=== PATIENT | female | born 1960 | race African-American/Black ===

== ENCOUNTER 2018-05-16 13:26 | Inpatient (IN) | payer OTHER ==
[2018-05-16 13:59] VITALS: BMI 34.0
--- NOTE | 2018-05-16 15:19 | HP ---
CIWA Score - Admission Criteria [facility] Guidelines: Admission for Medically Managed Detox: Requires at least one of the followin. CIWA greater than 12 2. Seizures within the past 24 hours 3. Delirium tremens within the past 24 hours 4. Hallucinations within the past 24 hours 5. Acute intervention needed for co occurring medical disorder 6. Acute intervention needed for co occurring psychiatric disorder 7. Severe withdrawal that cannot be handled at a lower level of care (continued vomiting, continued diarrhea, abnormal vital signs) requiring intravenous medication and/or fluids 8. Admission ROS S - HPI Chief Complaint: I was sent here from my mmtp program for rehab for treatment. Allergies/Adverse Reactions: Allergies Allergy/AdvReac Type Severity Reaction Status Date / Time Penicillins Allergy Verified 05/16/18 15:15 History of Present Illness: pt is a 57yrold female with a history of heroin dependence and on a MMTP program seeking rehab for treatment. Pt is [place] right ear. pt is also illiterate cannot read and write. Exam Limitations: No Limitations, Other (pt is illerate to reading and writing) - Ebola screening Have you traveled outside of the country in the last 21 days: No Have you had contact with anyone from an Ebola affected area: No Have you been sick,other than usual withdrawal symptoms: No Do you have a fever: No - Review of Systems Constitutional: No Symptoms Reported EENT: reports: Blurred Vision (wears glasses), Hearing Loss ([place] to right ear) Respiratory: reports: No Symptoms reported Cardiac: reports: No Symptoms Reported GI: reports: No Symptoms Reported : reports: No Symptoms Reported Musculoskeletal: reports: No Symptoms Reported Integumentary: reports: No Symptoms Reported Neuro: reports: Seizure (last seizure many years ago; pt on keppra) Endocrine: reports: No Symptoms Reported Hematology: reports: No Symptoms Reported Psychiatric: reports: Judgement Intact, Mood/Affect Appropiate, Orientated x3, Agitated, Anxious Other Systems: Reviewed and Negative Patient History - Patient Medical History Hx Anemia: No Hx Asthma: No Hx Chronic Obstructive Pulmonary Disease (COPD): No Hx Cancer: No Hx Cardiac Disorders: No Hx Congestive Heart Failure: No Hx Hypertension: Yes Hx Hypercholesterolemia: Yes Hx Pacemaker: No HX Cerebrovascular Accident: No Hx Seizures: Yes (on keppra) Hx Dementia: No Hx Diabetes: Yes (type 2 on medication) Hx Gastrointestinal Disorders: No Hx Liver Disease: No Hx Genitourinary Disorders: No Hx Sexually Transmitted Disorders: No Hx Renal Disease (ESRD): No Hx Thyroid Disease: No Hx Human Immunodeficiency Virus (HIV): No (negative) Hx Hepatitis C: No (negative) Hx Depression: Yes Hx Suicide Attempt: No (pt denies) Hx Bipolar Disorder: Yes Hx Schizophrenia: Yes - Patient Surgical History Past Surgical History: Yes Hx Section: Yes (x1) - PPD History Previous Implant?: Yes Documented Results: Negative w/o proof PPD to be Administered?: Yes - Reproductive History Patient is a Female of Child Bearing Age (11 -55 yrs old): No - Smoking Cessation Smoking history: Never smoked Have you smoked in the past 12 months: No Hx Chewing Tobacco Use: No Initiated information on smoking cessation: No - Substance & Tx. History Hx Alcohol Use: No Hx Substance Use: Yes Substance Use Type: Heroin Hx Substance Use Treatment: No - Substances Abused Heroin Route: Inhalation Frequency: 1-2 times per week Amount used: 1 bag Age of first use: 19 Date of Last Use: 05/16/18 Family Disease History - Family Disease History Family History: Unremarkable Admission Physical Exam [facility] - Vital Signs Vital Signs: Vital Signs - 24 hr 05/16/18 13:57 Temperature 99.9 F H Pulse Rate 67 Respiratory 17 Rate Blood Pressure 119/70 - Physical General Appearance: Yes: Appropriately Dressed, Mild Distress, Irritable, Anxious HEENTM: Yes: Hearing grossly Normal, Normal Voice, Rhinorrhea Respiratory: Yes: Lungs Clear, Normal Breath Sounds, No Respiratory Distress Neck: Yes: No masses,lesions,Nodules Breast: Yes: Within Normal Limits Cardiology: Yes: Regular Rhythm, Regular Rate, S1, S2 Abdominal: Yes: Normal Bowel Sounds, Non Tender, Soft Genitourinary: Yes: Within Normal Limits Back: Yes: Normal Inspection Musculoskeletal: Yes: full range of Motion Extremities: Yes: Normal Capillary Refill, Normal Inspection, Non-Tender Neurological: Yes: Fully Oriented, Alert, Normal Response, Other (pt states she is illiterate with reading and writing) Lymphatic: Yes: Within Normal Limits - Diagnostic (1) Heroin abuse Current Visit: Yes Status: Acute (2) Methadone maintenance therapy patient Current Visit: Yes Status: Chronic Comment: pending verification. last medicated today 05/16/18 Cleared for Admission S - Detox or Rehab [facility] Level of Care: Medically Managed Claeared for Rehab Admission: Yes [facility] Breath Alcohol Content Breath Alcohol Content: 0 Urine Pregancy Test - Result Urine Test Results: Negative- NO Line Present Urine Drug Screen - Results Drug Screen Negative: No Urine Drug Screen Results: OPI-Opiates, MTD-Methadone Inpatient Rehab Admission - Rehab Decision to Admit Inpatient rehab admission?: Yes - Initial Determination Are CD services needed?: Yes Free of communicable disease: Yes Not in need of hospitalization: Yes - Rehab Admission Criteria Previous failed treatment: Yes Poor recovery environment: Yes Comorbidities: Yes Lacks judgement: Yes Patient is meeting Inpatient Rehab admission criteria:: Yes
[2018-05-16] MEDS ORDERED: MENTHOL/PHENOL 1 EACH UD MM PRN (15:33)
[2018-05-16] MEDS ORDERED: MAG HYDROX/AL HYDROX/SIMETH 30 ML UNIT-DOSE CUP PO PRN (15:33)
[2018-05-16] MEDS ORDERED: LOPERAMIDE HCL 2 MG CAPSULE PO PRN (15:33)
[2018-05-16] MEDS ORDERED: P-EPHED 60MG/TRIPROLIDI 2.5MG TABLET PO PRN (15:33)
[2018-05-16] MEDS ORDERED: MAGNESIUM CITRATE 300 ML BOTTLE PO PRN (15:33)
[2018-05-16] MEDS ORDERED: IBUPROFEN 400 MG TABLET (FP) PO PRN (15:33)
[2018-05-16] MEDS ORDERED: MAGNESIUM HYDROX 2400MG/30ML ORAL SUSPENSION 30 ML CUP PO PRN (15:33)
[2018-05-16] MEDS ORDERED: hydrOXYzine PAMOATE 50 MG CAPSULE (FP) PO PRN (15:33)
[2018-05-16] MEDS ORDERED: ACETAMINOPHEN 325 MG TABLET (FP) PO PRN (15:33)
[2018-05-16] MEDS ORDERED: guaiFENesin/D-METHORPHAN HB 10 ML UNIT-DOSE CUPS PO PRN (15:33)
--- NOTE | 2018-05-16 19:31 | PN ---
[facility] Progress Note Note: Psychiatrist entry level sales consultant: As per nursing report patient started on preadmission medications: Risperdal 2mg po bid [id number] po tid [id number] po qhs
[2018-05-16] MEDS ORDERED: MELATONIN 5 MG TABLETS PO PRN (22:00)
[2018-05-16] MEDS: NAPROXEN 375 MG TABLET (FP) PO SCH (22:08)
[2018-05-16] MEDS: ATORVASTATIN CA 20 MG TABLET (FP) PO SCH (22:09)
[2018-05-16] MEDS: MIRTAZAPINE 15 MG TABLET (FP) PO SCH (22:09)
[2018-05-16] MEDS: risperiDONE 2 MG TABLET PO SCH (22:09)
[2018-05-16] MEDS: GABAPENTIN 400 MG CAPSULE (FP) PO SCH (22:09)
[2018-05-16] MEDS: THIAMINE HCL 100 MG TABLET (FP) PO SCH (22:10)
[2018-05-16] MEDS: levETIRAcetam XR 500 MG TAB PO SCH (22:10)
[2018-05-17] MEDS: GABAPENTIN 400 MG CAPSULE (FP) PO SCH ×3 (06:55→21:52)
[2018-05-17] MEDS: glyBURIDE 2.5 MG TABLET (FP) PO SCH (06:56)
[2018-05-17] MEDS ORDERED: METHADONE HCL 10 MG TABLET PO SCH (07:30)
[2018-05-17] MEDS ORDERED: METHADONE HCL 40 MG DISPERSABLE TABLET ONE (08:26)
[2018-05-17] MEDS ORDERED: METHADONE HCL 10 MG TABLET ONE (08:26)
[2018-05-17] MEDS: METHADONE 120 MG, METHADONE 10 MG PO SCH (08:28)
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
[2018-05-17] MEDS ORDERED: PATIENT'S OWN MEDICATION (NON-FORMULARY) (Lisinopril/Hydrochlorothiazide [Lisinopril-Hctz PO SCH (10:00)
[2018-05-17] MEDS ORDERED: PATIENT'S OWN MEDICATION (NON-FORMULARY) (Meloxicam [Meloxicam] 15 MG) PO SCH (10:00)
[2018-05-17] MEDS: risperiDONE 2 MG TABLET PO SCH ×2 (10:34→21:52)
[2018-05-17] MEDS: PRENATAL VITAMINS W/ FOLIC ACID TABLET (FP) PO SCH (10:34)
[2018-05-17] MEDS: HYDROCHLOROTHIAZIDE 12.5 MG CAPSULE (FP) PO SCH (10:35)
[2018-05-17] MEDS: NAPROXEN 375 MG TABLET (FP) PO SCH ×2 (10:35→21:52)
[2018-05-17] MEDS: LISINOPRIL 10 MG TABLET (FP) PO SCH (10:35)
[2018-05-17] MEDS: ASPIRIN COATED 81 MG TABLET.EC PO SCH (10:35)
[2018-05-17] MEDS: levETIRAcetam XR 500 MG TAB PO SCH ×2 (10:35→21:51)
[2018-05-17 10:51] LABS: HEMATOCRIT 35.4 % (32.4-45.2); HEMOGLOBIN 11.9 GM/dL (10.7-15.3); MCH 29.1 pg (25.7-33.7); MCHC 33.6 g/dl (32.0-36.0); MEAN CELL VOLUME 86.6 fl (80-96); MEAN PLT VOLUME 9.1 fl (7.5-11.1); PLATELET COUNT 238 K/MM3 (134-434); RBC 4.09 M/mm3 (3.60-5.2); RDW 15.5 % (11.6-15.6); WHITE BLOOD COUNT 5.3 K/mm3 (4.0-10.0)
[2018-05-17 10:54] LABS: ALBUMIN 3.5 g/dl (3.4-5.0); ALK PHOS 110 U/L (45-117); ANION GAP 5 MMOL/L (8-16); BILIRUBIN,TOTAL 0.5 mg/dL (0.2-1); BLOOD UREA NITROGEN 14 mg/dL (7-18); CALCIUM 9.2 mg/dL (8.5-10.1); CHLORIDE 103 mmol/L (98-107); CO2 31 mmol/L (21-32); CREATININE 0.9 mg/dL (0.55-1.3); GLUCOSE,RANDOM 138 mg/dL (74-106); POTASSIUM 4.1 mmol/L (3.5-5.1); SGOT/AST 16 U/L (15-37); SGPT/ALT 22 U/L (13-61); SODIUM 139 mmol/L (136-145); TOT PROT 7.2 g/dl (6.4-8.2)
[2018-05-17 12:50] LABS: URINE APPEARANCE SLCLOUDY; URINE BILIRUBIN NEGATIVE (<2.0 mg/dL); URINE COLOR DKYELLOW; URINE GLUCOSE (UA) 1+ (NEGATIVE); URINE KETONE NEGATIVE (NEGATIVE); URINE LEUK ESTERASE 3+ (NEGATIVE); URINE NITRITE NEGATIVE (NEGATIVE); URINE PROTEIN NEGATIVE (NEGATIVE); URINE UROBILINOGEN NEGATIVE mg/dL (0.2-1.0)
[2018-05-17 13:07] LABS: CALCIUM OXALATE CRYSTALS RARE /hpf (NONE SEEN); EPI CELLS RARE /HPF (FEW)
--- NOTE | 2018-05-17 15:06 | EKG ---
Test Reason : Blood Pressure : / mmHG Vent. Rate : 049 BPM Atrial Rate : 049 BPM P-R Int : 162 ms QRS Dur : 084 ms QT Int : 462 ms P-R-T Axes : 061 -05 -17 degrees QTc Int : 417 ms SINUS BRADYCARDIA T WAVE ABNORMALITY, CONSIDER ANTERIOR ISCHEMIA ABNORMAL ECG NO PREVIOUS ECGS AVAILABLE Confirmed by SHANNAN FELDMAN MD ([id number]) on 05/17/2018 3:06:20 PM Referred By: Confirmed By:SHANNAN FELDMAN MD
[2018-05-17] MEDS ORDERED: PT OWN MED DRAWER 7, Y5N ONE (19:27)
[2018-05-17] MEDS: ATORVASTATIN CA 20 MG TABLET (FP) PO SCH (21:51)
[2018-05-17] MEDS: MIRTAZAPINE 15 MG TABLET (FP) PO SCH (21:52)
[2018-05-17] MEDS: THIAMINE HCL 100 MG TABLET (FP) PO SCH (21:52)
[2018-05-18] MEDS ORDERED: METHADONE HCL 10 MG TABLET ONE (05:14)
[2018-05-18] MEDS ORDERED: METHADONE HCL 40 MG DISPERSABLE TABLET ONE (05:15)
[2018-05-18] MEDS ORDERED: METHADONE 120 MG, METHADONE 10 MG PO SCH (06:00)
[2018-05-18] MEDS: METHADONE 120 MG, METHADONE 10 MG PO SCH (06:17)
[2018-05-18] MEDS: GABAPENTIN 400 MG CAPSULE (FP) PO SCH ×3 (06:18→21:43)
[2018-05-18] MEDS: glyBURIDE 2.5 MG TABLET (FP) PO SCH (06:19)
[2018-05-18] MEDS ORDERED: PT OWN MED DRAWER 7, Y5N ONE ×3 (08:50→21:48)
[2018-05-18] MEDS: NAPROXEN 375 MG TABLET (FP) PO SCH ×2 (10:30→21:44)
[2018-05-18] MEDS: LISINOPRIL 10 MG TABLET (FP) PO SCH (10:32)
[2018-05-18] MEDS: PRENATAL VITAMINS W/ FOLIC ACID TABLET (FP) PO SCH (10:32)
[2018-05-18] MEDS: ASPIRIN COATED 81 MG TABLET.EC PO SCH (10:32)
[2018-05-18] MEDS: HYDROCHLOROTHIAZIDE 12.5 MG CAPSULE (FP) PO SCH (10:32)
[2018-05-18] MEDS: risperiDONE 2 MG TABLET PO SCH ×2 (10:32→21:43)
[2018-05-18] MEDS: levETIRAcetam XR 500 MG TAB PO SCH ×2 (10:33→21:45)
[2018-05-18] MEDS: PANTOPRAZOLE 40 MG TABLET (FP) PO SCH (13:55)
[2018-05-18] MEDS: ATORVASTATIN CA 20 MG TABLET (FP) PO SCH (21:43)
[2018-05-18] MEDS: MIRTAZAPINE 15 MG TABLET (FP) PO SCH (21:43)
[2018-05-18] MEDS: THIAMINE HCL 100 MG TABLET (FP) PO SCH (22:25)
[2018-05-19] MEDS ORDERED: METHADONE HCL 40 MG DISPERSABLE TABLET ONE (02:31)
[2018-05-19] MEDS ORDERED: METHADONE HCL 10 MG TABLET ONE (02:31)
[2018-05-19] MEDS ORDERED: PT OWN MED DRAWER 7, Y5N ONE ×2 (02:33→08:50)
[2018-05-19] MEDS: GABAPENTIN 400 MG CAPSULE (FP) PO SCH ×3 (06:35→21:42)
[2018-05-19] MEDS: glyBURIDE 2.5 MG TABLET (FP) PO SCH (06:35)
[2018-05-19] MEDS: METHADONE 120 MG, METHADONE 10 MG PO SCH (06:37)
[2018-05-19] MEDS: ASPIRIN COATED 81 MG TABLET.EC PO SCH (10:11)
[2018-05-19] MEDS: HYDROCHLOROTHIAZIDE 12.5 MG CAPSULE (FP) PO SCH (10:12)
[2018-05-19] MEDS: PRENATAL VITAMINS W/ FOLIC ACID TABLET (FP) PO SCH (10:12)
[2018-05-19] MEDS: levETIRAcetam XR 500 MG TAB PO SCH ×2 (10:12→21:42)
[2018-05-19] MEDS: NAPROXEN 375 MG TABLET (FP) PO SCH ×2 (10:12→21:43)
[2018-05-19] MEDS: risperiDONE 2 MG TABLET PO SCH ×2 (10:13→21:42)
[2018-05-19] MEDS: LISINOPRIL 10 MG TABLET (FP) PO SCH (10:13)
[2018-05-19] MEDS: PANTOPRAZOLE 40 MG TABLET (FP) PO SCH (10:13)
[2018-05-19] MEDS: THIAMINE HCL 100 MG TABLET (FP) PO SCH (21:42)
[2018-05-19] MEDS: ATORVASTATIN CA 20 MG TABLET (FP) PO SCH (21:42)
[2018-05-19] MEDS: MIRTAZAPINE 15 MG TABLET (FP) PO SCH (21:42)
[2018-05-20] MEDS ORDERED: METHADONE HCL 40 MG DISPERSABLE TABLET ONE (03:28)
[2018-05-20] MEDS ORDERED: METHADONE HCL 10 MG TABLET ONE (03:28)
[2018-05-20] MEDS: METHADONE 120 MG, METHADONE 10 MG PO SCH (06:41)
[2018-05-20] MEDS: glyBURIDE 2.5 MG TABLET (FP) PO SCH (06:42)
[2018-05-20] MEDS: GABAPENTIN 400 MG CAPSULE (FP) PO SCH ×3 (06:42→22:45)
[2018-05-20] MEDS ORDERED: PT OWN MED DRAWER 7, Y5N ONE ×4 (08:50→20:15)
[2018-05-20] MEDS: ASPIRIN COATED 81 MG TABLET.EC PO SCH (10:06)
[2018-05-20] MEDS: risperiDONE 2 MG TABLET PO SCH ×2 (10:34→22:45)
[2018-05-20] MEDS: PRENATAL VITAMINS W/ FOLIC ACID TABLET (FP) PO SCH (10:34)
[2018-05-20] MEDS: HYDROCHLOROTHIAZIDE 12.5 MG CAPSULE (FP) PO SCH (10:34)
[2018-05-20] MEDS: PANTOPRAZOLE 40 MG TABLET (FP) PO SCH (10:34)
[2018-05-20] MEDS: levETIRAcetam XR 500 MG TAB PO SCH ×2 (10:34→22:45)
[2018-05-20] MEDS: LISINOPRIL 10 MG TABLET (FP) PO SCH (10:34)
[2018-05-20] MEDS: NAPROXEN 375 MG TABLET (FP) PO SCH ×2 (10:36→22:45)
[2018-05-20] MEDS: MIRTAZAPINE 15 MG TABLET (FP) PO SCH (22:45)
[2018-05-20] MEDS: THIAMINE HCL 100 MG TABLET (FP) PO SCH (22:45)
[2018-05-20] MEDS: ATORVASTATIN CA 20 MG TABLET (FP) PO SCH (22:45)
[2018-05-21] MEDS ORDERED: METHADONE HCL 10 MG TABLET ONE (06:02)
[2018-05-21] MEDS ORDERED: METHADONE HCL 40 MG DISPERSABLE TABLET ONE (06:03)
[2018-05-21] MEDS ORDERED: PT OWN MED DRAWER 7, Y5N ONE (06:04)
[2018-05-21] MEDS: GABAPENTIN 400 MG CAPSULE (FP) PO SCH ×3 (06:27→21:14)
[2018-05-21] MEDS: METHADONE 120 MG, METHADONE 10 MG PO SCH (06:27)
[2018-05-21] MEDS: glyBURIDE 2.5 MG TABLET (FP) PO SCH (06:28)
[2018-05-21] MEDS: HYDROCHLOROTHIAZIDE 12.5 MG CAPSULE (FP) PO SCH (10:23)
[2018-05-21] MEDS: LISINOPRIL 10 MG TABLET (FP) PO SCH (10:24)
[2018-05-21] MEDS: NAPROXEN 375 MG TABLET (FP) PO SCH ×2 (10:24→21:13)
[2018-05-21] MEDS: ASPIRIN COATED 81 MG TABLET.EC PO SCH (10:24)
[2018-05-21] MEDS: PRENATAL VITAMINS W/ FOLIC ACID TABLET (FP) PO SCH (10:24)
[2018-05-21] MEDS: PANTOPRAZOLE 40 MG TABLET (FP) PO SCH (10:24)
[2018-05-21] MEDS: risperiDONE 2 MG TABLET PO SCH ×2 (10:24→21:14)
[2018-05-21] MEDS: levETIRAcetam XR 500 MG TAB PO SCH ×2 (10:25→21:14)
--- NOTE | 2018-05-21 15:55 | PN ---
[facility] Progress Note Note: PT C/O RIGHT TOE PAIN AND DENIED ANY TRUAMA TO TOE OR LEG. REPORTS HX OF ARTHRITIS TO FEET. Vital Signs - 24 hr 05/21/18 05/21/18 05/21/18 00:30 03:30 07:46 Temperature 98.0 F Pulse Rate 49 L Respiratory 18 18 18 Rate Blood Pressure 107/71 05/21/18 09:19 Temperature Pulse Rate 73 Respiratory Rate Blood Pressure 111/75 Laboratory Tests 05/16/18 05/16/18 05/16/18 06:25 06:25 06:25 WBC 5.3 RBC 4.09 Hgb 11.9 Hct 35.4 MCV 86.6 MCH 29.1 MCHC 33.6 RDW 15.5 Plt Count 238 MPV 9.1 Sodium 139 Potassium 4.1 Chloride 103 Carbon Dioxide 31 Anion Gap 5 L BUN 14 Creatinine 0.9 Creat Clearance w eGFR > 60 POC Glucometer Random Glucose 138 H Calcium 9.2 Total Bilirubin 0.5 AST 16 ALT 22 Alkaline Phosphatase 110 Total Protein 7.2 Albumin 3.5 Urine Color Urine Appearance Urine pH Ur Specific [place] Urine Protein Urine Glucose (UA) Urine Ketones Urine Blood Urine Nitrite Urine Bilirubin Urine Urobilinogen Ur Leukocyte Esterase Urine WBC (Auto) Urine RBC (Auto) Ur Epithelial Cells Calcium Oxalate Crystal RPR Titer Nonreactive 05/16/18 05/17/18 05/17/18 16:53 06:53 10:40 WBC RBC Hgb Hct MCV MCH MCHC RDW Plt Count MPV Sodium Potassium Chloride Carbon Dioxide Anion Gap BUN Creatinine Creat Clearance w eGFR POC Glucometer 137 102 Random Glucose Calcium Total Bilirubin AST ALT Alkaline Phosphatase Total Protein Albumin Urine Color Dkyellow Urine Appearance Slcloudy Urine pH 5.0 Ur Specific [place] 1.029 Urine Protein Negative Urine Glucose (UA) 1+ H Urine Ketones Negative Urine Blood Negative Urine Nitrite Negative Urine Bilirubin Negative Urine Urobilinogen Negative Ur Leukocyte Esterase 3+ H Urine WBC (Auto) 12 Urine RBC (Auto) None Ur Epithelial Cells Rare Calcium Oxalate Crystal Rare RPR Titer 05/18/18 05/18/18 05/19/18 06:17 17:00 06:37 WBC RBC Hgb Hct MCV MCH MCHC RDW Plt Count MPV Sodium Potassium Chloride Carbon Dioxide Anion Gap BUN Creatinine Creat Clearance w eGFR POC Glucometer 140 171 102 Random Glucose Calcium Total Bilirubin AST ALT Alkaline Phosphatase Total Protein Albumin Urine Color Urine Appearance Urine pH Ur Specific [place] Urine Protein Urine Glucose (UA) Urine Ketones Urine Blood Urine Nitrite Urine Bilirubin Urine Urobilinogen Ur Leukocyte Esterase Urine WBC (Auto) Urine RBC (Auto) Ur Epithelial Cells Calcium Oxalate Crystal RPR Titer 05/19/18 05/20/18 05/20/18 16:47 06:40 16:41 WBC RBC Hgb Hct MCV MCH MCHC RDW Plt Count MPV Sodium Potassium Chloride Carbon Dioxide Anion Gap BUN Creatinine Creat Clearance w eGFR POC Glucometer 188 146 197 Random Glucose Calcium Total Bilirubin AST ALT Alkaline Phosphatase Total Protein Albumin Urine Color Urine Appearance Urine pH Ur Specific [place] Urine Protein Urine Glucose (UA) Urine Ketones Urine Blood Urine Nitrite Urine Bilirubin Urine Urobilinogen Ur Leukocyte Esterase Urine WBC (Auto) Urine RBC (Auto) Ur Epithelial Cells Calcium Oxalate Crystal RPR Titer 05/21/18 06:26 WBC RBC Hgb Hct MCV MCH MCHC RDW Plt Count MPV Sodium Potassium Chloride Carbon Dioxide Anion Gap BUN Creatinine Creat Clearance w eGFR POC Glucometer 146 Random Glucose Calcium Total Bilirubin AST ALT Alkaline Phosphatase Total Protein Albumin Urine Color Urine Appearance Urine pH Ur Specific [place] Urine Protein Urine Glucose (UA) Urine Ketones Urine Blood Urine Nitrite Urine Bilirubin Urine Urobilinogen Ur Leukocyte Esterase Urine WBC (Auto) Urine RBC (Auto) Ur Epithelial Cells Calcium Oxalate Crystal RPR Titer EXTREMITY EXAM:BUNION ON BOTH GREAT TOES, LEFT > RIGHT. RIGHT TOE NAILS WITH SEVERE ONYCCHOMYCOTIC CHANGES SKIN:EXTREME DRYNESS WITH SCALING/ASHINESS. A:ONYCCHOMYCOSIS OF NAILS TINEA PEDIS DRY SKIN BUNION PLAN:WARM FOOT SOAKS AMMONIUM LACTATE LOTION DIRECTED ANALGESIC BALM TO RIGHT TOE DIRECTED TINACTIN CREAM
[2018-05-21] MEDS: THIAMINE HCL 100 MG TABLET (FP) PO SCH (21:13)
[2018-05-21] MEDS: AMMONIUM LACTATE 12% LOTION 225 GM BOTTLE TP SCH (21:14)
[2018-05-21] MEDS: MIRTAZAPINE 15 MG TABLET (FP) PO SCH (21:14)
[2018-05-21] MEDS: ATORVASTATIN CA 20 MG TABLET (FP) PO SCH (21:14)
[2018-05-21] MEDS: METHYL SALICYLATE/MENTHOL OINT 30 GM TUBE TP SCH (21:15)
[2018-05-21] MEDS: TOLNAFTATE 1% CREAM 15 GM TUBE TP SCH (21:16)
[2018-05-22] MEDS ORDERED: METHADONE HCL 10 MG TABLET ONE (06:08)
[2018-05-22] MEDS ORDERED: METHADONE HCL 40 MG DISPERSABLE TABLET ONE (06:09)
[2018-05-22] MEDS: GABAPENTIN 400 MG CAPSULE (FP) PO SCH ×3 (07:00→22:31)
[2018-05-22] MEDS: METHADONE 120 MG, METHADONE 10 MG PO SCH (07:00)
[2018-05-22] MEDS: glyBURIDE 2.5 MG TABLET (FP) PO SCH (07:04)
[2018-05-22] MEDS: METHYL SALICYLATE/MENTHOL OINT 30 GM TUBE TP SCH ×2 (09:28→22:34)
[2018-05-22] MEDS: NAPROXEN 375 MG TABLET (FP) PO SCH ×2 (09:28→22:32)
[2018-05-22] MEDS: HYDROCHLOROTHIAZIDE 12.5 MG CAPSULE (FP) PO SCH (09:29)
[2018-05-22] MEDS: AMMONIUM LACTATE 12% LOTION 225 GM BOTTLE TP SCH ×2 (09:29→22:34)
[2018-05-22] MEDS: PRENATAL VITAMINS W/ FOLIC ACID TABLET (FP) PO SCH (09:29)
[2018-05-22] MEDS: levETIRAcetam XR 500 MG TAB PO SCH ×2 (09:29→22:41)
[2018-05-22] MEDS: ASPIRIN COATED 81 MG TABLET.EC PO SCH (09:29)
[2018-05-22] MEDS: LISINOPRIL 10 MG TABLET (FP) PO SCH (09:30)
[2018-05-22] MEDS: risperiDONE 2 MG TABLET PO SCH ×2 (09:30→22:31)
[2018-05-22] MEDS: PANTOPRAZOLE 40 MG TABLET (FP) PO SCH (09:30)
[2018-05-22] MEDS: TOLNAFTATE 1% CREAM 15 GM TUBE TP SCH ×2 (10:47→22:33)
[2018-05-22] MEDS: THIAMINE HCL 100 MG TABLET (FP) PO SCH (22:31)
[2018-05-22] MEDS: ATORVASTATIN CA 20 MG TABLET (FP) PO SCH (22:32)
[2018-05-22] MEDS: MIRTAZAPINE 15 MG TABLET (FP) PO SCH (22:33)
[2018-05-23] MEDS ORDERED: METHADONE HCL 40 MG DISPERSABLE TABLET ONE (05:41)
[2018-05-23] MEDS ORDERED: METHADONE HCL 10 MG TABLET ONE (05:41)
[2018-05-23] MEDS: GABAPENTIN 400 MG CAPSULE (FP) PO SCH ×3 (06:15→21:36)
[2018-05-23] MEDS: METHADONE 120 MG, METHADONE 10 MG PO SCH (06:15)
[2018-05-23] MEDS: glyBURIDE 2.5 MG TABLET (FP) PO SCH (07:10)
[2018-05-23] MEDS ORDERED: PT OWN MED DRAWER 7, Y5N ONE ×2 (08:49→20:44)
[2018-05-23] MEDS: ASPIRIN COATED 81 MG TABLET.EC PO SCH (10:42)
[2018-05-23] MEDS: NAPROXEN 375 MG TABLET (FP) PO SCH ×2 (10:42→21:37)
[2018-05-23] MEDS: HYDROCHLOROTHIAZIDE 12.5 MG CAPSULE (FP) PO SCH (10:42)
[2018-05-23] MEDS: PRENATAL VITAMINS W/ FOLIC ACID TABLET (FP) PO SCH (10:42)
[2018-05-23] MEDS: PANTOPRAZOLE 40 MG TABLET (FP) PO SCH (10:42)
[2018-05-23] MEDS: LISINOPRIL 10 MG TABLET (FP) PO SCH (10:43)
[2018-05-23] MEDS: risperiDONE 2 MG TABLET PO SCH ×2 (10:43→21:36)
[2018-05-23] MEDS: AMMONIUM LACTATE 12% LOTION 225 GM BOTTLE TP SCH ×2 (10:44→21:38)
[2018-05-23] MEDS: levETIRAcetam XR 500 MG TAB PO SCH ×2 (10:44→21:38)
[2018-05-23] MEDS: METHYL SALICYLATE/MENTHOL OINT 30 GM TUBE TP SCH ×2 (10:45→21:38)
[2018-05-23] MEDS: TOLNAFTATE 1% CREAM 15 GM TUBE TP SCH ×2 (10:45→21:38)
[2018-05-23] MEDS: MIRTAZAPINE 15 MG TABLET (FP) PO SCH (21:36)
[2018-05-23] MEDS: THIAMINE HCL 100 MG TABLET (FP) PO SCH (21:36)
[2018-05-23] MEDS: ATORVASTATIN CA 20 MG TABLET (FP) PO SCH (21:36)
[2018-05-24] MEDS ORDERED: METHADONE HCL 10 MG TABLET ONE (05:55)
[2018-05-24] MEDS ORDERED: METHADONE HCL 40 MG DISPERSABLE TABLET ONE (05:55)
[2018-05-24] MEDS: METHADONE 120 MG, METHADONE 10 MG PO SCH (06:11)
[2018-05-24] MEDS: GABAPENTIN 400 MG CAPSULE (FP) PO SCH ×3 (06:11→21:54)
[2018-05-24] MEDS: glyBURIDE 2.5 MG TABLET (FP) PO SCH (06:16)
[2018-05-24] MEDS: levETIRAcetam XR 500 MG TAB PO SCH ×2 (10:30→22:08)
[2018-05-24] MEDS: PANTOPRAZOLE 40 MG TABLET (FP) PO SCH (10:31)
[2018-05-24] MEDS: ASPIRIN COATED 81 MG TABLET.EC PO SCH (10:31)
[2018-05-24] MEDS: NAPROXEN 375 MG TABLET (FP) PO SCH ×2 (10:31→21:54)
[2018-05-24] MEDS: PRENATAL VITAMINS W/ FOLIC ACID TABLET (FP) PO SCH (10:31)
[2018-05-24] MEDS: risperiDONE 2 MG TABLET PO SCH ×2 (10:31→21:54)
[2018-05-24] MEDS: METHYL SALICYLATE/MENTHOL OINT 30 GM TUBE TP SCH ×2 (10:32→21:54)
[2018-05-24] MEDS: HYDROCHLOROTHIAZIDE 12.5 MG CAPSULE (FP) PO SCH (10:32)
[2018-05-24] MEDS: TOLNAFTATE 1% CREAM 15 GM TUBE TP SCH ×2 (10:32→22:19)
[2018-05-24] MEDS: LISINOPRIL 10 MG TABLET (FP) PO SCH (10:32)
[2018-05-24] MEDS: AMMONIUM LACTATE 12% LOTION 225 GM BOTTLE TP SCH ×2 (10:32→21:54)
[2018-05-24] MEDS ORDERED: PT OWN MED DRAWER 7, Y5N ONE ×4 (11:06→22:03)
--- NOTE | 2018-05-24 12:14 | PN ---
[facility] Progress Note Note: NURSE REQUESTS TO REVIEW BP READINGS; Vital Signs (72 hours) 05/22/18 05/22/18 05/22/18 00:30 03:30 07:35 Temperature 98.4 F Pulse Rate 47 L Respiratory 18 18 18 Rate Blood Pressure 120/77 05/22/18 05/23/18 05/23/18 09:29 00:30 03:30 Temperature Pulse Rate 79 Respiratory 16 16 Rate Blood Pressure 93/64 05/23/18 05/23/18 05/24/18 07:17 09:30 00:30 Temperature 98.3 F Pulse Rate 55 L 68 Respiratory 18 18 Rate Blood Pressure 122/81 111/72 05/24/18 05/24/18 05/24/18 03:30 07:10 09:25 Temperature 98.1 F Pulse Rate 78 55 L Respiratory 18 18 Rate Blood Pressure 132/79 96/60 NOTED PLAN:CONTINUE POC HOLD HYDROCHLOROTHIAZIDE 12.5 MG PO DAILY IG LOW BP OF 100/60.
[2018-05-24] MEDS: THIAMINE HCL 100 MG TABLET (FP) PO SCH (21:53)
[2018-05-24] MEDS: ATORVASTATIN CA 20 MG TABLET (FP) PO SCH (21:53)
[2018-05-24] MEDS: MIRTAZAPINE 15 MG TABLET (FP) PO SCH (21:54)
[2018-05-25] MEDS ORDERED: PT OWN MED DRAWER 7, Y5N ONE (05:59)
[2018-05-25] MEDS: glyBURIDE 2.5 MG TABLET (FP) PO SCH (07:00)
[2018-05-25] MEDS: GABAPENTIN 400 MG CAPSULE (FP) PO SCH ×3 (07:00→21:50)
[2018-05-25] MEDS ORDERED: METHADONE HCL 10 MG TABLET PO SCH (07:45)
[2018-05-25] MEDS ORDERED: METHADONE HCL 10 MG TABLET ONE (08:34)
[2018-05-25] MEDS ORDERED: METHADONE HCL 40 MG DISPERSABLE TABLET ONE (08:35)
[2018-05-25] MEDS: METHADONE 120 MG, METHADONE 10 MG PO SCH (08:36)
[2018-05-25] MEDS: risperiDONE 2 MG TABLET PO SCH ×2 (10:28→21:50)
[2018-05-25] MEDS: PANTOPRAZOLE 40 MG TABLET (FP) PO SCH (10:28)
[2018-05-25] MEDS: PRENATAL VITAMINS W/ FOLIC ACID TABLET (FP) PO SCH (10:28)
[2018-05-25] MEDS: ASPIRIN COATED 81 MG TABLET.EC PO SCH (10:28)
[2018-05-25] MEDS: levETIRAcetam XR 500 MG TAB PO SCH ×2 (10:28→21:49)
[2018-05-25] MEDS: NAPROXEN 375 MG TABLET (FP) PO SCH ×2 (10:28→21:49)
[2018-05-25] MEDS: TOLNAFTATE 1% CREAM 15 GM TUBE TP SCH ×2 (10:29→21:49)
[2018-05-25] MEDS: HYDROCHLOROTHIAZIDE 12.5 MG CAPSULE (FP) PO SCH (10:29)
[2018-05-25] MEDS: LISINOPRIL 10 MG TABLET (FP) PO SCH (10:29)
[2018-05-25] MEDS: METHYL SALICYLATE/MENTHOL OINT 30 GM TUBE TP SCH ×2 (10:29→21:50)
[2018-05-25] MEDS: AMMONIUM LACTATE 12% LOTION 225 GM BOTTLE TP SCH ×2 (10:30→21:49)
[2018-05-25] MEDS: THIAMINE HCL 100 MG TABLET (FP) PO SCH (21:48)
[2018-05-25] MEDS: ATORVASTATIN CA 20 MG TABLET (FP) PO SCH (21:50)
[2018-05-25] MEDS: MIRTAZAPINE 15 MG TABLET (FP) PO SCH (21:50)
[2018-05-26] MEDS ORDERED: METHADONE HCL 40 MG DISPERSABLE TABLET ONE (06:05)
[2018-05-26] MEDS ORDERED: METHADONE HCL 10 MG TABLET ONE (06:05)
[2018-05-26] MEDS: glyBURIDE 2.5 MG TABLET (FP) PO SCH (06:40)
[2018-05-26] MEDS: GABAPENTIN 400 MG CAPSULE (FP) PO SCH ×3 (06:41→21:55)
[2018-05-26] MEDS: METHADONE 120 MG, METHADONE 10 MG PO SCH (06:42)
[2018-05-26] MEDS: NAPROXEN 375 MG TABLET (FP) PO SCH ×2 (10:21→21:55)
[2018-05-26] MEDS: risperiDONE 2 MG TABLET PO SCH ×2 (10:22→21:55)
[2018-05-26] MEDS: ASPIRIN COATED 81 MG TABLET.EC PO SCH (10:22)
[2018-05-26] MEDS: PRENATAL VITAMINS W/ FOLIC ACID TABLET (FP) PO SCH (10:22)
[2018-05-26] MEDS: PANTOPRAZOLE 40 MG TABLET (FP) PO SCH (10:22)
[2018-05-26] MEDS: levETIRAcetam XR 500 MG TAB PO SCH ×2 (10:23→21:54)
[2018-05-26] MEDS: AMMONIUM LACTATE 12% LOTION 225 GM BOTTLE TP SCH ×2 (10:23→21:54)
[2018-05-26] MEDS: HYDROCHLOROTHIAZIDE 12.5 MG CAPSULE (FP) PO SCH (10:23)
[2018-05-26] MEDS: TOLNAFTATE 1% CREAM 15 GM TUBE TP SCH ×2 (10:24→21:54)
[2018-05-26] MEDS: METHYL SALICYLATE/MENTHOL OINT 30 GM TUBE TP SCH ×2 (10:24→21:54)
[2018-05-26] MEDS: LISINOPRIL 10 MG TABLET (FP) PO SCH (10:25)
[2018-05-26] MEDS: ATORVASTATIN CA 20 MG TABLET (FP) PO SCH (21:54)
[2018-05-26] MEDS: THIAMINE HCL 100 MG TABLET (FP) PO SCH (21:54)
[2018-05-26] MEDS: MIRTAZAPINE 15 MG TABLET (FP) PO SCH (21:55)
[2018-05-27] MEDS ORDERED: METHADONE HCL 10 MG TABLET ONE (05:50)
[2018-05-27] MEDS ORDERED: METHADONE HCL 40 MG DISPERSABLE TABLET ONE (05:51)
[2018-05-27] MEDS: glyBURIDE 2.5 MG TABLET (FP) PO SCH (06:39)
[2018-05-27] MEDS: GABAPENTIN 400 MG CAPSULE (FP) PO SCH ×3 (06:39→21:39)
[2018-05-27] MEDS: METHADONE 120 MG, METHADONE 10 MG PO SCH (06:40)
[2018-05-27] MEDS ORDERED: PT OWN MED DRAWER 7, Y5N ONE (08:56)
[2018-05-27] MEDS: HYDROCHLOROTHIAZIDE 12.5 MG CAPSULE (FP) PO SCH (10:09)
[2018-05-27] MEDS: ASPIRIN COATED 81 MG TABLET.EC PO SCH (10:09)
[2018-05-27] MEDS: levETIRAcetam XR 500 MG TAB PO SCH ×2 (10:09→21:41)
[2018-05-27] MEDS: METHYL SALICYLATE/MENTHOL OINT 30 GM TUBE TP SCH ×2 (10:09→21:41)
[2018-05-27] MEDS: risperiDONE 2 MG TABLET PO SCH ×2 (10:10→21:39)
[2018-05-27] MEDS: PANTOPRAZOLE 40 MG TABLET (FP) PO SCH (10:10)
[2018-05-27] MEDS: AMMONIUM LACTATE 12% LOTION 225 GM BOTTLE TP SCH ×2 (10:10→21:41)
[2018-05-27] MEDS: LISINOPRIL 10 MG TABLET (FP) PO SCH (10:10)
[2018-05-27] MEDS: NAPROXEN 375 MG TABLET (FP) PO SCH ×2 (10:10→21:39)
[2018-05-27] MEDS: PRENATAL VITAMINS W/ FOLIC ACID TABLET (FP) PO SCH (10:10)
[2018-05-27] MEDS: TOLNAFTATE 1% CREAM 15 GM TUBE TP SCH ×2 (10:13→21:40)
[2018-05-27] MEDS: ATORVASTATIN CA 20 MG TABLET (FP) PO SCH (21:39)
[2018-05-27] MEDS: MIRTAZAPINE 15 MG TABLET (FP) PO SCH (21:39)
[2018-05-27] MEDS: THIAMINE HCL 100 MG TABLET (FP) PO SCH (21:39)
[2018-05-28] MEDS ORDERED: METHADONE HCL 10 MG TABLET ONE (03:04)
[2018-05-28] MEDS ORDERED: METHADONE HCL 40 MG DISPERSABLE TABLET ONE (03:04)
[2018-05-28] MEDS: METHADONE 120 MG, METHADONE 10 MG PO SCH (06:13)
[2018-05-28] MEDS: GABAPENTIN 400 MG CAPSULE (FP) PO SCH ×3 (06:13→21:15)
[2018-05-28] MEDS: glyBURIDE 2.5 MG TABLET (FP) PO SCH (06:14)
[2018-05-28] MEDS: PANTOPRAZOLE 40 MG TABLET (FP) PO SCH (10:30)
[2018-05-28] MEDS: HYDROCHLOROTHIAZIDE 12.5 MG CAPSULE (FP) PO SCH (10:31)
[2018-05-28] MEDS: AMMONIUM LACTATE 12% LOTION 225 GM BOTTLE TP SCH ×2 (10:31→21:16)
[2018-05-28] MEDS: levETIRAcetam XR 500 MG TAB PO SCH ×2 (10:31→21:16)
[2018-05-28] MEDS: risperiDONE 2 MG TABLET PO SCH ×2 (10:31→21:15)
[2018-05-28] MEDS: NAPROXEN 375 MG TABLET (FP) PO SCH ×2 (10:31→21:16)
[2018-05-28] MEDS: LISINOPRIL 10 MG TABLET (FP) PO SCH (10:31)
[2018-05-28] MEDS: PRENATAL VITAMINS W/ FOLIC ACID TABLET (FP) PO SCH (10:31)
[2018-05-28] MEDS: METHYL SALICYLATE/MENTHOL OINT 30 GM TUBE TP SCH ×2 (10:31→21:16)
[2018-05-28] MEDS: ASPIRIN COATED 81 MG TABLET.EC PO SCH (10:31)
[2018-05-28] MEDS: TOLNAFTATE 1% CREAM 15 GM TUBE TP SCH ×2 (10:31→21:16)
[2018-05-28] MEDS: MIRTAZAPINE 15 MG TABLET (FP) PO SCH (21:15)
[2018-05-28] MEDS: THIAMINE HCL 100 MG TABLET (FP) PO SCH (21:15)
[2018-05-28] MEDS: ATORVASTATIN CA 20 MG TABLET (FP) PO SCH (21:15)
[2018-05-29] MEDS ORDERED: METHADONE HCL 40 MG DISPERSABLE TABLET ONE (05:31)
[2018-05-29] MEDS ORDERED: METHADONE HCL 10 MG TABLET ONE (05:31)
[2018-05-29] MEDS: GABAPENTIN 400 MG CAPSULE (FP) PO SCH ×3 (06:26→21:31)
[2018-05-29] MEDS: METHADONE 120 MG, METHADONE 10 MG PO SCH (06:27)
[2018-05-29] MEDS: glyBURIDE 2.5 MG TABLET (FP) PO SCH (06:27)
[2018-05-29] MEDS: METHYL SALICYLATE/MENTHOL OINT 30 GM TUBE TP SCH ×2 (09:40→21:33)
[2018-05-29] MEDS: HYDROCHLOROTHIAZIDE 12.5 MG CAPSULE (FP) PO SCH (09:41)
[2018-05-29] MEDS: AMMONIUM LACTATE 12% LOTION 225 GM BOTTLE TP SCH ×2 (09:41→21:32)
[2018-05-29] MEDS: levETIRAcetam XR 500 MG TAB PO SCH ×2 (09:41→21:32)
[2018-05-29] MEDS: ASPIRIN COATED 81 MG TABLET.EC PO SCH (09:41)
[2018-05-29] MEDS: risperiDONE 2 MG TABLET PO SCH ×2 (09:42→21:31)
[2018-05-29] MEDS: PRENATAL VITAMINS W/ FOLIC ACID TABLET (FP) PO SCH (09:42)
[2018-05-29] MEDS: PANTOPRAZOLE 40 MG TABLET (FP) PO SCH (09:42)
[2018-05-29] MEDS: LISINOPRIL 10 MG TABLET (FP) PO SCH (09:42)
[2018-05-29] MEDS: NAPROXEN 375 MG TABLET (FP) PO SCH ×2 (09:42→21:31)
[2018-05-29] MEDS: TOLNAFTATE 1% CREAM 15 GM TUBE TP SCH ×2 (09:43→21:33)
[2018-05-29] MEDS: MIRTAZAPINE 15 MG TABLET (FP) PO SCH (21:31)
[2018-05-29] MEDS: ATORVASTATIN CA 20 MG TABLET (FP) PO SCH (21:31)
[2018-05-29] MEDS: THIAMINE HCL 100 MG TABLET (FP) PO SCH (21:31)
[2018-05-30] MEDS ORDERED: METHADONE HCL 10 MG TABLET ONE (02:47)
[2018-05-30] MEDS ORDERED: METHADONE HCL 40 MG DISPERSABLE TABLET ONE (02:48)
[2018-05-30] MEDS: glyBURIDE 2.5 MG TABLET (FP) PO SCH (06:17)
[2018-05-30] MEDS: GABAPENTIN 400 MG CAPSULE (FP) PO SCH (06:17)
[2018-05-30] MEDS: METHADONE 120 MG, METHADONE 10 MG PO SCH (06:18)
[2018-05-30 07:09] VITALS: TEMP 98.2
[2018-05-30] MEDS ORDERED: PT OWN MED DRAWER 7, Y5N ONE (09:00)
[2018-05-30] MEDS: PRENATAL VITAMINS W/ FOLIC ACID TABLET (FP) PO SCH (09:02)
[2018-05-30] MEDS: METHYL SALICYLATE/MENTHOL OINT 30 GM TUBE TP SCH (09:02)
[2018-05-30] MEDS: ASPIRIN COATED 81 MG TABLET.EC PO SCH (09:02)
[2018-05-30] MEDS: levETIRAcetam XR 500 MG TAB PO SCH (09:03)
[2018-05-30] MEDS: HYDROCHLOROTHIAZIDE 12.5 MG CAPSULE (FP) PO SCH (09:03)
[2018-05-30] MEDS: risperiDONE 2 MG TABLET PO SCH (09:03)
[2018-05-30] MEDS: PANTOPRAZOLE 40 MG TABLET (FP) PO SCH (09:03)
[2018-05-30] MEDS: AMMONIUM LACTATE 12% LOTION 225 GM BOTTLE TP SCH (09:04)
[2018-05-30] MEDS: TOLNAFTATE 1% CREAM 15 GM TUBE TP SCH (09:04)
[2018-05-30] MEDS: NAPROXEN 375 MG TABLET (FP) PO SCH (09:04)
[2018-05-30] MEDS: LISINOPRIL 10 MG TABLET (FP) PO SCH (09:04)
--- NOTE | 2018-05-30 09:42 | PN ---
S Progress Note Note: Psychiatric nurse practitioner note: Patient able to complete rehab and will be discharged today. A 30 day prescription of risperdal 2mg BID + Mirtazapine 15mg HS was electronically sent [place] [address].
--- NOTE | 2018-05-30 10:12 | PN ---
[facility] Progress Note Note: PT COMPLETED REHAB AND DISCHARGED TODAY. PT MET WITH HER COUNSELOR AND REFERRED BACK TO [facility]GRAM AT [address] [place] [address]. PT REPORTS SHE HAS A PCP DR. THORNTON AT ABOVE LOCATION FOR MEDICAL MANAGEMENT. PT REPORTS SHE HAS ALL HER MEDS IN HER PROPERTY EXCEPT THE PPI. COURTESY RX FOR OMEPRAZOLE 20 MG PO DAILY #14 ELECTRONICALLY SENT TO PT'S HOME PHARMACY AT [facility]. ALERT O X 3. DENIES S/H/I. Home Medications Medication Instructions Recorded Aspirin [Aspirin EC] 81 mg PO DAILY 05/16/18 Atorvastatin Ca [Lipitor] 20 mg PO HS 05/16/18 Gabapentin 400 mg PO TID 05/16/18 Glyburide 2.5 mg PO DAILY 05/16/18 Hydroxyzine HCl 25 mg PO BID PRN 05/16/18 Lisinopril/Hydrochlorothiazide 1 each PO DAILY 05/16/18 [Lisinopril-Hctz 10-12.5 mg Tab] Meloxicam 15 mg PO DAILY 05/16/18 Metformin HCl [Metformin HCl ER] 500 mg PO DAILY 05/16/18 Mirtazapine 15 mg PO HS 05/16/18 Multivitamin [One-Daily 1 each PO DAILY 05/16/18 Multi-Vitamin] Risperidone [Risperdal] 2 mg PO BID 05/16/18 levETIRAcetam [Levetiracetam ER] 500 mg PO BID 05/16/18 Mirtazapine [Remeron -] 15 mg PO HS #30 tablet 05/30/18 Omeprazole 20 mg PO DAILY #14 capsule. 05/30/18 Risperidone [Risperdal -] 2 mg PO BID #60 tablet 05/30/18 Vital Signs (72 hours) 05/28/18 05/28/18 05/28/18 00:30 07:03 09:20 Temperature 98.1 F Pulse Rate 56 L 51 L Respiratory 18 16 18 Rate Blood Pressure 107/70 95/66 05/28/18 05/28/18 05/29/18 10:00 13:50 00:30 Temperature Pulse Rate 60 62 Respiratory 18 18 Rate Blood Pressure 92/67 108/71 05/29/18 05/29/18 05/29/18 03:30 07:19 09:07 Temperature 97.7 F Pulse Rate 76 59 L Respiratory 18 18 Rate Blood Pressure 128/87 116/75 05/30/18 05/30/18 05/30/18 00:30 03:30 07:09 Temperature 98.2 F Pulse Rate 67 Respiratory 18 18 18 Rate Blood Pressure 130/85 Laboratory Tests 05/16/18 05/16/18 05/16/18 06:25 06:25 06:25 WBC 5.3 RBC 4.09 Hgb 11.9 Hct 35.4 MCV 86.6 MCH 29.1 MCHC 33.6 RDW 15.5 Plt Count 238 MPV 9.1 Sodium 139 Potassium 4.1 Chloride 103 Carbon Dioxide 31 Anion Gap 5 L BUN 14 Creatinine 0.9 Creat Clearance w eGFR > 60 POC Glucometer Random Glucose 138 H Calcium 9.2 Total Bilirubin 0.5 AST 16 ALT 22 Alkaline Phosphatase 110 Total Protein 7.2 Albumin 3.5 Urine Color Urine Appearance Urine pH Ur Specific [place] Urine Protein Urine Glucose (UA) Urine Ketones Urine Blood Urine Nitrite Urine Bilirubin Urine Urobilinogen Ur Leukocyte Esterase Urine WBC (Auto) Urine RBC (Auto) Ur Epithelial Cells Calcium Oxalate Crystal RPR Titer Nonreactive 05/16/18 05/17/18 05/17/18 16:53 06:53 10:40 WBC RBC Hgb Hct MCV MCH MCHC RDW Plt Count MPV Sodium Potassium Chloride Carbon Dioxide Anion Gap BUN Creatinine Creat Clearance w eGFR POC Glucometer 137 102 Random Glucose Calcium Total Bilirubin AST ALT Alkaline Phosphatase Total Protein Albumin Urine Color Dkyellow Urine Appearance Slcloudy Urine pH 5.0 Ur Specific [place] 1.029 Urine Protein Negative Urine Glucose (UA) 1+ H Urine Ketones Negative Urine Blood Negative Urine Nitrite Negative Urine Bilirubin Negative Urine Urobilinogen Negative Ur Leukocyte Esterase 3+ H Urine WBC (Auto) 12 Urine RBC (Auto) None Ur Epithelial Cells Rare Calcium Oxalate Crystal Rare RPR Titer 05/18/18 05/18/18 05/19/18 06:17 17:00 06:37 WBC RBC Hgb Hct MCV MCH MCHC RDW Plt Count MPV Sodium Potassium Chloride Carbon Dioxide Anion Gap BUN Creatinine Creat Clearance w eGFR POC Glucometer 140 171 102 Random Glucose Calcium Total Bilirubin AST ALT Alkaline Phosphatase Total Protein Albumin Urine Color Urine Appearance Urine pH Ur Specific [place] Urine Protein Urine Glucose (UA) Urine Ketones Urine Blood Urine Nitrite Urine Bilirubin Urine Urobilinogen Ur Leukocyte Esterase Urine WBC (Auto) Urine RBC (Auto) Ur Epithelial Cells Calcium Oxalate Crystal RPR Titer 05/19/18 05/20/18 05/20/18 16:47 06:40 16:41 WBC RBC Hgb Hct MCV MCH MCHC RDW Plt Count MPV Sodium Potassium Chloride Carbon Dioxide Anion Gap BUN Creatinine Creat Clearance w eGFR POC Glucometer 188 146 197 Random Glucose Calcium Total Bilirubin AST ALT Alkaline Phosphatase Total Protein Albumin Urine Color Urine Appearance Urine pH Ur Specific [place] Urine Protein Urine Glucose (UA) Urine Ketones Urine Blood Urine Nitrite Urine Bilirubin Urine Urobilinogen Ur Leukocyte Esterase Urine WBC (Auto) Urine RBC (Auto) Ur Epithelial Cells Calcium Oxalate Crystal RPR Titer 05/21/18 05/21/18 05/22/18 06:26 16:43 06:27 WBC RBC Hgb Hct MCV MCH MCHC RDW Plt Count MPV Sodium Potassium Chloride Carbon Dioxide Anion Gap BUN Creatinine Creat Clearance w eGFR POC Glucometer 146 181 96 Random Glucose Calcium Total Bilirubin AST ALT Alkaline Phosphatase Total Protein Albumin Urine Color Urine Appearance Urine pH Ur Specific [place] Urine Protein Urine Glucose (UA) Urine Ketones Urine Blood Urine Nitrite Urine Bilirubin Urine Urobilinogen Ur Leukocyte Esterase Urine WBC (Auto) Urine RBC (Auto) Ur Epithelial Cells Calcium Oxalate Crystal RPR Titer 05/22/18 05/23/18 05/23/18 17:16 07:08 16:54 WBC RBC Hgb Hct MCV MCH MCHC RDW Plt Count MPV Sodium Potassium Chloride Carbon Dioxide Anion Gap BUN Creatinine Creat Clearance w eGFR POC Glucometer 160 142 174 Random Glucose Calcium Total Bilirubin AST ALT Alkaline Phosphatase Total Protein Albumin Urine Color Urine Appearance Urine pH Ur Specific [place] Urine Protein Urine Glucose (UA) Urine Ketones Urine Blood Urine Nitrite Urine Bilirubin Urine Urobilinogen Ur Leukocyte Esterase Urine WBC (Auto) Urine RBC (Auto) Ur Epithelial Cells Calcium Oxalate Crystal RPR Titer 05/24/18 05/24/18 05/25/18 06:14 16:55 06:58 WBC RBC Hgb Hct MCV MCH MCHC RDW Plt Count MPV Sodium Potassium Chloride Carbon Dioxide Anion Gap BUN Creatinine Creat Clearance w eGFR POC Glucometer 157 144 123 Random Glucose Calcium Total Bilirubin AST ALT Alkaline Phosphatase Total Protein Albumin Urine Color Urine Appearance Urine pH Ur Specific [place] Urine Protein Urine Glucose (UA) Urine Ketones Urine Blood Urine Nitrite Urine Bilirubin Urine Urobilinogen Ur Leukocyte Esterase Urine WBC (Auto) Urine RBC (Auto) Ur Epithelial Cells Calcium Oxalate Crystal RPR Titer 05/25/18 05/26/18 05/26/18 16:59 06:39 16:31 WBC RBC Hgb Hct MCV MCH MCHC RDW Plt Count MPV Sodium Potassium Chloride Carbon Dioxide Anion Gap BUN Creatinine Creat Clearance w eGFR POC Glucometer 157 152 152 Random Glucose Calcium Total Bilirubin AST ALT Alkaline Phosphatase Total Protein Albumin Urine Color Urine Appearance Urine pH Ur Specific [place] Urine Protein Urine Glucose (UA) Urine Ketones Urine Blood Urine Nitrite Urine Bilirubin Urine Urobilinogen Ur Leukocyte Esterase Urine WBC (Auto) Urine RBC (Auto) Ur Epithelial Cells Calcium Oxalate Crystal RPR Titer 05/27/18 05/27/18 05/28/18 06:38 16:53 06:12 WBC RBC Hgb Hct MCV MCH MCHC RDW Plt Count MPV Sodium Potassium Chloride Carbon Dioxide Anion Gap BUN Creatinine Creat Clearance w eGFR POC Glucometer 146 153 112 Random Glucose Calcium Total Bilirubin AST ALT Alkaline Phosphatase Total Protein Albumin Urine Color Urine Appearance Urine pH Ur Specific [place] Urine Protein Urine Glucose (UA) Urine Ketones Urine Blood Urine Nitrite Urine Bilirubin Urine Urobilinogen Ur Leukocyte Esterase Urine WBC (Auto) Urine RBC (Auto) Ur Epithelial Cells Calcium Oxalate Crystal RPR Titer 05/28/18 05/28/18 05/29/18 13:51 16:36 06:25 WBC RBC Hgb Hct MCV MCH MCHC RDW Plt Count MPV Sodium Potassium Chloride Carbon Dioxide Anion Gap BUN Creatinine Creat Clearance w eGFR POC Glucometer 166 166 133 Random Glucose Calcium Total Bilirubin AST ALT Alkaline Phosphatase Total Protein Albumin Urine Color Urine Appearance Urine pH Ur Specific [place] Urine Protein Urine Glucose (UA) Urine Ketones Urine Blood Urine Nitrite Urine Bilirubin Urine Urobilinogen Ur Leukocyte Esterase Urine WBC (Auto) Urine RBC (Auto) Ur Epithelial Cells Calcium Oxalate Crystal RPR Titer 05/29/18 05/30/18 16:58 06:17 WBC RBC Hgb Hct MCV MCH MCHC RDW Plt Count MPV Sodium Potassium Chloride Carbon Dioxide Anion Gap BUN Creatinine Creat Clearance w eGFR POC Glucometer 159 118 Random Glucose Calcium Total Bilirubin AST ALT Alkaline Phosphatase Total Protein Albumin Urine Color Urine Appearance Urine pH Ur Specific [place] Urine Protein Urine Glucose (UA) Urine Ketones Urine Blood Urine Nitrite Urine Bilirubin Urine Urobilinogen Ur Leukocyte Esterase Urine WBC (Auto) Urine RBC (Auto) Ur Epithelial Cells Calcium Oxalate Crystal RPR Titer NAD MEDICALLY STABLE PLAN:FOLLOW UP WITH CD AFTERCARE RECOMMENDED. FOLLOW UP WITH PCP ABOVE WITHIN 1-2 WEEKS AFTER DISCHARGE.
[2018-05-30 11:03] VITALS: BP 118/76; PULSE 76
== END 2018-05-30 09:40 | disposition home or self-care (01) | DRG 772 ==
LOC: YASAS 13:26 → Y3E 17:05
PROVIDERS: ADMIT Neuromusculoskeletal Medicine & OMM; ATTEND Neuromusculoskeletal Medicine & OMM
PROC: HZ42ZZZ Group Counseling for Substance Abuse Treatment, Cognitive-Behavioral (ICD-10-PCS; principal; 2018-05-16)
DX: F11.20 Opioid dependence, uncomplicated (principal); F43.10 Post-traumatic stress disorder, unspecified; F31.9 Bipolar disorder, unspecified; I10 Essential (primary) hypertension; E11.9 Type 2 diabetes mellitus without complications; G40.909 Epilepsy, unspecified, not intractable, without status epilepticus; E78.5 Hyperlipidemia, unspecified; B35.3 Tinea pedis; L98.8 Other specified disorders of the skin and subcutaneous tissue; M21.611 Bunion of right foot; Z88.0 Allergy status to penicillin
CPT/HCPCS: 36415; 80053; 81003; 81015; 82962; 85027; 86593; 93005; 93010